=== PATIENT | male | born 1980 | race Caucasian/White ===

== ENCOUNTER 2025-01-08 02:06 | Emergency (ER) | payer SELFPAY ==
[2025-01-08 02:09] VITALS: BMI 24.3
[2025-01-08 02:13] VITALS: BP 168/114; PULSE 109; RESP 18; TEMP 36.8; O2SAT 98
--- NOTE | 2025-01-08 02:21 | PD.EDMEDCL ---
ED Medical Clearance RME/HPI General Chief complaint: Medical Clearance Stated complaint: MEDICAL CLEARANCE Time Seen by Provider: 01/08/25 02:19 Arrival date/time: 01/08/25 02:06 RME / HPI RME / HPI Narrative: Dr. Davenport?s Main ED Evaluation: 44yo male with no significant past medical history BIB [facility] presents to the ED for a medical clearance. Patient was brought in due to his blood pressure and heart rate being too high. Patient reports having a headache, but denies any chest pain, shortness of breath, abdominal pain, or any other associated symptoms. Denies any illict drug use. NKA. Related Information Previous Rx's ?Medication ?Instructions ?Recorded amlodipine 10 mg tablet 10 mg PO QDAY #30 tabs 01/08/25 Allergies Allergy/AdvReac Type Severity Reaction Status Date / Time No Known Allergies Allergy Verified 01/08/25 02:09 Review of Systems Review of Systems Systems Reviewed: All systems reviewed, normal except as documented ED Exam Narrative Physical exam: Generally patient is alert somewhat anxious but no obvious distress, eyes pupils equal round reactive to light, neck shows no nuchal rigidity, heart tachycardic rate with regular rhythm, lungs clear to auscultation equal bilaterally, abdomen soft bowel sounds present nondistended nontender without pulsatile mass, neurologic exam no ataxia without focal motor deficit with [place] Coma Scale of 15 Course Quality Measures none Orders Category Date Time Status EKG (ED ONLY) *Do not use* NOW Care 01/08/25 02:22 Completed EKG (ED Only) Stat Exams 01/08/25 02:22 Ordered BMP [Basic Metabolic Panel] Stat Lab 01/08/25 02:27 Completed CBC Stat Lab 01/08/25 02:27 Completed Drug Screen,Urine Stat Lab 01/08/25 02:22 Ordered Labetalol IV [Trandate IV] Med 01/08/25 02:22 Discontinued 20 mg IVP X1 ONE Vital Signs Vital signs: Vital Signs Temperature 98.3 F 01/08/25 02:13 Pulse Rate 109 H 01/08/25 02:13 Respiratory Rate 18 01/08/25 02:13 Blood Pressure 168/114 H 01/08/25 02:13 Pulse Oximetry (%) 98 01/08/25 02:13 Oxygen Delivery Method Room Air 01/08/25 02:13 Medical Clearance MDM Narrative MDM Narrative:: Scribe Attestation: 01/08/25 - Alonzo, Mar Zarate am scribing for and in the presence of Dr. Davenport. I interpreted all labs. There was no significant abnormality to the CBC or basic metabolic panel. EKG shows normal sinus rhythm at a rate of 83 without ischemic change or ectopy. Patient did not give a urine sample for urinary tox cream. Patient was given labetalol 20 mg IV which helped decrease heart rate below 100 and blood pressure to 165/94. Patient will be medically clear for the correction facility. Norvasc as prescribed. Patient data External records reviewed:: [facility] previous records (Per chart review, patient has no previous ED visits or admissions to this facility.) Clinical information provided by:: patient and law enforcement Social determinants that could affect healthcare access:: none Patient has the following chronic illnesses:: none How is presenting disease/condition affected by chronic disease/condition?: no chronic disease Evaluation data The following diagnostics were reviewed and interpreted by me:: lab results and EKG tracing(s) Lab and/or radiology exams considered but not ordered:: none Interpretation Summary: See [facility] Medications / Prescriptions Medications or Prescriptions considered but not ordered:: none Medication administrations:: Medication Administration History Discontinued Medications Labetalol HCl (Labetalol Inj 5 Mg/Ml Vial 20 Ml) 20 mg IVP X1 ONE Stop: 01/08/25 02:23 Last Admin: 01/08/25 02:38 Dose: 20 mg Documented By: CECILIA see above Consultations Consultation(s) initiated? (list below): No Diagnosis Medical Clearance Differential Diagnosis: other (See MDM) Most likely diagnosis given after review of the tests above:: see clinical impression below Admission Indicated Admission indicated?: not indicated Admission Request Was there a request for admission?: No Disposition Plan Disposition Plan: Discharge Discharge Attestation Discharge Attestation: The patient and all family members were given an opportunity to ask questions and understood the discharge instructions. Discharge instructions specifically effects, indications for sooner follow up or return to the emergency department, and the expected course of current diagnosis. Patient condition: Stable Discharge Plan Plan Patient Disposition: Halfway/Court/Law Prescriptions/Referrals Prescriptions/Med Rec: New amlodipine 10 mg tablet 10 mg PO QDAY Qty: 30 0RF Problem List Clinical Impression: Hypertension Patient/Caregiver Discharge Instructions Education Materials: ED High Blood Pressure ... Additional Instructions: Amlodipine as prescribed. Print Language: Bangladeshi
[2025-01-08 02:38] VITALS: BP 173/112; PULSE 108
[2025-01-08] MEDS: LABETALOL INJ 5 MG/ML VIAL 20 ML 20 MG IVP (02:38)
[2025-01-08 02:41] LABS: Basophils # (Auto) 0.0 Thou/mm3 (0.0-0.2); Basophils % (Auto) 1 % (0-2.5); Eosinophils # (Auto) 0.2 Thou/mm3 (0.0-0.5); Eosinophils % (Auto) 2 % (0-10); Hematocrit 46.0 % (41.0-53.0); Hemoglobin 16.1 g/dL (13.5-16.0); Immature Granulocytes Auto 0.01 Thou/mm3 (0.00-0.00); Lymphocytes # (Auto) 1.6 Thou/mm3 (1.0-4.8); Lymphocytes % (Auto) 20 % (10-50); Mean Corpuscular HGB Conc 35.0 g/dl (31.0-37.0); Mean Corpuscular Hemoglobin 30.2 pg (25.0-35.0); Mean Corpuscular Volume 86 fL (80-100); Monocytes # (Auto) 0.7 Thou/mm3 (0.0-0.8); Monocytes % (Auto) 9 % (0-12); Neutrophils # (Auto) 5.3 Thou/mm3 (1.8-7.7); Neutrophils % (Auto) 69 % (37-80); Nucleated Red Blood Cell # 0.00 Thou/mm3 (0.00-0.00); Nucleated Red Blood Cell % 0 /100 WBC (0); Platelet Count 316 Thou/mm3 (140-440); RDW Standard Deviation 37.2 fL (35.1-43.9); Red Blood Count 5.33 Miln/mm3 (4.50-5.90); White Blood Count 7.7 Thou/mm3 (3.8-10.6)
[2025-01-08 03:03] LABS: Anion Gap 10 (7-16); BUN/Creatinine Ratio 10 Ratio (12-20); Blood Urea Nitrogen 10 mg/dL (9-23); Calcium 9.5 mg/dL (8.3-10.6); Carbon Dioxide 28.2 mMol/L (20.0-31.0); Chloride 106 mMol/L (98-107); Creatinine (Component) 1.0 mg/dL (0.6-1.3); Estimated Creatinine Clearance 90.3 mL/min (>60); Glucose 115 mg/dL (74-106); Osmolality,Calculated 286 (275-295); Potassium 4.2 mMol/L (3.4-5.1); Sodium 144 mMol/L (136-145); eGFR > 60 See Note
[2025-01-08 03:30] VITALS: BP 133/97; PULSE 80; RESP 18; O2SAT 99
== END 2025-01-08 03:42 ==
LOC: SERX 06:57
PROVIDERS: Emergency Provider Emergency Medicine
DX: Z02.89 Encounter for other administrative examinations (principal); I10 Essential (primary) hypertension
CPT/HCPCS: 36415; 80048; 80307; 85025; 93005; 96374; 99284; J3490; J1920